=== PATIENT | female | born 1970 | race Caucasian/White ===

== ENCOUNTER 2017-02-13 10:41 | Outpatient (CLI) | payer OTHER | END 2017-02-13 10:56 | disposition home or self-care (01) | LOC: MAMO-SONO 10:41 | DX: Z12.31 Encounter for screening mammogram for malignant neoplasm of breast (principal); N60.11 Diffuse cystic mastopathy of right breast; N60.12 Diffuse cystic mastopathy of left breast ==

== ENCOUNTER 2018-02-11 15:56 | Emergency (ER) | payer OTHER ==
[~2018-02-11] VITALS: Ht 165.1 cm; Wt 64.9 kg
== END 2018-02-11 19:05 | disposition home or self-care (01) ==
LOC: ER 15:56
DX: S62.668A Nondisplaced fracture of distal phalanx of other finger, initial encounter for closed fracture (principal); S69.82XA Other specified injuries of left wrist, hand and finger(s), initial encounter; W23.1XXA Caught, crushed, jammed, or pinched between stationary objects, initial encounter; Y93.89 Activity, other specified; Y92.810 Car as the place of occurrence of the external cause; Y99.8 Other external cause status

== ENCOUNTER 2018-03-20 09:43 | Outpatient (CLI) | payer OTHER | END 2018-03-20 15:00 | disposition home or self-care (01) | LOC: LAB 09:43 | DX: Z13.6 Encounter for screening for cardiovascular disorders (principal); Z13.1 Encounter for screening for diabetes mellitus; Z13.29 Encounter for screening for other suspected endocrine disorder; R73.03 Prediabetes ==

== ENCOUNTER → 2018-03-20 | Outpatient (CLI) | payer OTHER | END | disposition home or self-care (01) | LOC: MAMO-SONO 08:15 | DX: Z12.31 Encounter for screening mammogram for malignant neoplasm of breast (principal); N60.11 Diffuse cystic mastopathy of right breast; N60.12 Diffuse cystic mastopathy of left breast ==

== ENCOUNTER 2020-03-30 10:26 | Outpatient (CLI) | payer OTHER | END 2020-03-30 10:31 | disposition HB | LOC: MAMO-SONO 10:26 | PROVIDERS: ATTEND Obstetrics & Gynecology | DX: N60.11 Diffuse cystic mastopathy of right breast (principal); N60.12 Diffuse cystic mastopathy of left breast; Z12.31 Encounter for screening mammogram for malignant neoplasm of breast ==

== ENCOUNTER 2021-04-17 14:27 | Outpatient (CLI) | payer OTHER | END 2021-04-17 15:00 | disposition home or self-care (01) | LOC: MAMO-SONO 14:27 | PROVIDERS: ATTEND Obstetrics & Gynecology | DX: N83.02 Follicular cyst of left ovary (principal); N83.01 Follicular cyst of right ovary; Z97.5 Presence of (intrauterine) contraceptive device; Z12.31 Encounter for screening mammogram for malignant neoplasm of breast; N60.11 Diffuse cystic mastopathy of right breast; N60.12 Diffuse cystic mastopathy of left breast ==

== ENCOUNTER 2021-12-02 11:18 | Emergency (ER) | payer OTHER ==
[~2021-12-02] VITALS: Ht 165.1 cm; Wt 72.6 kg
== END 2021-12-02 15:44 ==
LOC: ER
DX: S02.2XXA Fracture of nasal bones, initial encounter for closed fracture (principal); X58.XXXA Exposure to other specified factors, initial encounter; Y93.89 Activity, other specified; Y92.89 Other specified places as the place of occurrence of the external cause; Y99.9 Unspecified external cause status; Z88.2 Allergy status to sulfonamides

== ENCOUNTER 2022-01-05 20:19 | Emergency (ER) | payer OTHER ==
[~2022-01-05] VITALS: Ht 165.1 cm; Wt 70.3 kg
[2022-01-05] MEDS ORDERED: GARAMYCIN OPHT3.5 GM OP (22:08)
== END 2022-01-05 22:14 | disposition home or self-care (01) ==
LOC: ER 20:19
DX: H18.821 Corneal disorder due to contact lens, right eye (principal); Z88.2 Allergy status to sulfonamides

== ENCOUNTER 2022-06-25 10:50 | Outpatient (CLI) | payer OTHER ==
[~2022-06-25 10:50] MED LIST: GARAMYCIN OPHT3.5 GM OP
== END 2022-06-25 11:06 | disposition home or self-care (01) ==
LOC: MAMO-SONO 10:50
PROVIDERS: ATTEND Obstetrics & Gynecology
DX: Z12.31 Encounter for screening mammogram for malignant neoplasm of breast (principal); N60.11 Diffuse cystic mastopathy of right breast; N60.12 Diffuse cystic mastopathy of left breast; R10.2 Pelvic and perineal pain; N83.01 Follicular cyst of right ovary; N83.02 Follicular cyst of left ovary

== ENCOUNTER 2024-09-09 13:09 | Outpatient (CLI) | payer OTHER | END 2024-09-09 13:18 | disposition home or self-care (01) | LOC: MAMO-SONO 13:09 | PROVIDERS: ATTEND Obstetrics & Gynecology | DX: N60.11 Diffuse cystic mastopathy of right breast (principal); N60.12 Diffuse cystic mastopathy of left breast; N64.4 Mastodynia; Z12.31 Encounter for screening mammogram for malignant neoplasm of breast; D25.1 Intramural leiomyoma of uterus; N92.4 Excessive bleeding in the premenopausal period ==